=== PATIENT | male | born 1995 | race Two or more races ===

== ENCOUNTER 2019-04-20 13:32 | Emergency (ER) | payer MEDICARE ==
[~2019-04-20] VITALS: Ht 172.7 cm; Wt 70.0 kg
[2019-04-20 17:15] LABS: CLARITY URINE TURBID (CLEAR); COLOR URINE YELLOW (YELLOW); KETONES URINE NEGATIVE (NEGATIVE); LEUKOCYTE ESTERASE URINE NEGATIVE (NEGATIVE); NITRITE URINE NEGATIVE (NEGATIVE); OCCULT BLOOD URINE NEGATIVE (NEGATIVE); PROTEIN URINE NEGATIVE (NEGATIVE); SPECIFIC GRAVITY URINE 1.025 (1.005-1.030)
[2019-04-20 17:24] LABS: BASOPHILS % 0.6 % (0.0-2.0); HEMATOCRIT. 48.5 % (42.0-52.0); HEMOGLOBIN. 16.6 g/dL (14.0-18.0); LYMPHOCYTES % 30.3 % (20.0-50.0); MEAN CORPUSCULAR HEMOGLOBIN 31.9 pg (28.0-32.0); MEAN CORPUSCULAR VOLUME 93.2 fL (80.0-94.0); MEAN PLATELET VOLUME 9.1 fl (7.4-10.4); MONOCYTES % 7.7 % (2.0-8.0); NEUTROPHILS % 60.4 % (40.0-76.0); PLATELET 204 x1000/uL (130-400); RED CELL DISTRIBUTION WIDTH 12.2 % (11.6-14.6)
[2019-04-20 17:30] LABS: CHLORIDE 108 mEq/L (98-107)
[2019-04-20 17:31] LABS: INR 1.2
[2019-04-20] MEDS ORDERED: SODIUM CHLORIDE 0.9% 1,000 ML IV ONE (17:33)
[2019-04-20] MEDS ORDERED: KETOROLAC 30MG/ML VIAL IV STA (17:33)
[2019-04-20] MEDS ORDERED: AZITHROMYCIN 500 MG TABLET PO ONE (18:45)
[2019-04-20] MEDS ORDERED: CEFTRIAXONE SODIUM 250 MG/VIAL IM ONE (18:45)
[2019-04-20 20:00] VITALS: BP 117/69
[2019-04-23 04:15] LABS: CHLAMYDIA TRACHOMATIS NAA Negative (Negative); NEISSERIA GONORRHOEAE NAA Negative (Negative)
== END 2019-04-20 22:18 | disposition home or self-care (01) ==
LOC: ER 13:32
DX: R10.9 Unspecified abdominal pain (principal); R30.0 Dysuria
CPT/HCPCS: 36415; 80053; 81003; 83690; 85025; 85610; 87491; 87591; 96372; 96374; 99283; J0696; J1885; J7030